=== PATIENT | female | born 1965 | race Caucasian/White ===

== ENCOUNTER 2019-04-09 16:52 | Emergency (ER) | payer OTHER ==
[2019-04-09 17:04] VITALS: BP 156/84
[2019-04-09] MEDS: Sodium Chloride 0.9% 10 ML Syringe FLUSH PRN ×2 (18:20→19:32)
[2019-04-09] MEDS ORDERED: Iohexol 647 MG/ML 100 ML Bottle IVPUSH ONE (18:58)
[2019-04-09] MEDS ORDERED: Diatrizoate Meglumine/Diatrizoate Sodium 37% 120 ML Bottle PO ONE (19:00)
[2019-04-09] MEDS ORDERED: Sodium Chloride 0.9% 10 ML Syringe FLUSH SCH (19:00)
--- NOTE | 2019-04-09 20:02 | EDM.PDOC ---
ED HPI GENERAL MEDICAL PROBLEM - General Chief Complaint: Abdominal Pain Stated Complaint: LOWER ABD PAIN Time Seen by Provider: 04/09/19 17:50 Source of Information: Reports: Patient History Limitations: Reports: No Limitations - History of Present Illness INITIAL COMMENTS - FREE TEXT/NARRATIVE: 54-year-old female sent over from the walk-in clinic for evaluation and treatment of abdominal pain, r/o appendicitis. Patient had labs done at the walk -in clinic. White blood cell count was within normal limits at 6. CRP was elevated at 25 within normal range being less than 5. Patient reports symptoms started on Sunday. She reports some lower abdominal pain and cramping. She states it has improved since Sunday. She reports associated symptoms of decreased appetite. Denies any fevers, chills, nausea, vomiting, diarrhea, constipation or any blood in her stool. She denies any urinary symptoms of a no dysuria or hematuria. States she is to pass gas. She reports that the pain is significantly improved since around lunchtime. States that the pain is made worse with movement such as bending over or sitting down. Previous abdominal surgeries include several C-sections. She did have colonoscopy about 5 years ago was told that she had diverticulitis at that time. - Related Data Allergies Allergy/AdvReac Type Severity Reaction Status Date / Time No Known Allergies Allergy Verified 04/09/19 17:03 Home Meds: Home Meds Levothyroxine 125 mcg PO DAILY 11/04/15 [History] Acetaminophen/oxyCODONE [Percocet 325-5 MG] 1 tab PO Q4HR PRN #15 tab 04/09/19 [ Rx] Levofloxacin [Levaquin] 750 mg PO DAILY #9 tablet 04/09/19 [Rx] metroNIDAZOLE [Flagyl] 500 mg PO Q8H #29 tab 04/09/19 [Rx] Past Medical History - Past Health History Medical/Surgical History: Denies Medical/Surgical History Endocrine/Metabolic History: Reports: Hypothyroidism Social & Family History - Tobacco Use Smoking Status *Q: Never Smoker Second Hand Smoke Exposure: No - Caffeine Use Caffeine Use: Reports: Coffee - Recreational Drug Use Recreational Drug Use: No ED ROS GENERAL - Review of Systems Review Of Systems: See Below Constitutional: Denies: Fever, Chills GI/Abdominal: Reports: Abdominal Pain (Lower abdominal). Denies: Constipation, Diarrhea, Hematochezia, Melena, Nausea, Vomiting : Reports: No Symptoms. Denies: Dysuria, Hematuria ED EXAM, GI/ABD - Physical Exam Exam: See Below Exam Limited By: No Limitations General Appearance: Alert, WD/WN, No Apparent Distress Throat/Mouth: Normal Inspection, Normal Voice, No Airway Compromise Respiratory/Chest: No Respiratory Distress, Lungs Clear, Normal Breath Sounds Cardiovascular: Normal Peripheral Pulses, Regular Rate, Rhythm, No Murmur GI/Abdominal Exam: Normal Bowel Sounds, Soft, No Distention, Tender (Minor tenderness to the lower abdomen. No pain at McBurney's point.), Other (No pain with this was an obturator sign. No pain with heel percussion). No: Guarding, Rigid, Rebound Neurological: Alert, Oriented, Normal Cognition Psychiatric: Normal Affect, Normal Mood Skin Exam: Warm, Dry, Normal Color Course - Vital Signs Last Recorded V/S: Last Vital Signs Temp 98.5 F 04/09/19 17:01 Pulse 63 04/09/19 17:01 Resp 16 04/09/19 17:01 BP 156/84 H 04/09/19 17:01 Pulse Ox 100 04/09/19 17:01 - Orders/Labs/Meds Orders: Active Orders 24 hr Category Date Time Status Peripheral IV Care [RC] . DIRECTED Care 04/09/19 18:04 Active Peripheral IV Insertion Adult [OM.PC] Routine Oth 04/09/19 18:04 Ordered Meds: Medications Discontinued Medications Generic Name Dose Route Start Last Admin Trade Name Freq PRN Reason Stop Dose Admin Diatrizoate Meglum/Diatrizoate Sod 120 ml 04/09/19 19:00 Gastrografin 37% PO 04/09/19 19:01 ONETIME ONE Iohexol 100 ml 04/09/19 18:58 04/09/19 19:29 Omnipaque-300 IVPUSH 04/09/19 18:59 100 ml ONETIME ONE Administration Levofloxacin 750 mg 04/09/19 20:12 04/09/19 20:20 Levaquin PO 04/09/19 20:13 750 mg NOW STA Administration Metronidazole 500 mg 04/09/19 20:12 04/09/19 20:20 Flagyl PO 04/09/19 20:13 500 mg ONETIME ONE Administration Sodium Chloride 10 ml 04/09/19 18:04 04/09/19 19:32 Saline Flush FLUSH 10 ml ASDIRECTED PRN Administration Keep Vein Open Sodium Chloride 10 ml 04/09/19 19:00 Saline Flush FLUSH ASDIRECTED DEBORAH - Radiology Interpretation Free Text/Narrative:: CT abdomen and pelvis Technique: Multiple axial sections were obtained from above the dome of the diaphragm inferiorly through the pubic symphysis. Intravenous and oral contrast was utilized. Delayed images were also obtained through the bladder. Comparison: No prior abdominal or pelvic CT exam. Findings: Small portion of the visualized lung bases are clear. Liver contains no focal abnormality. Spleen measures at the upper limits of normal at 13.2 cm which is nonspecific. Adrenal glands show no nodule. Pancreas is within normal limits. Aorta shows no aneurysm with mild atherosclerotic calcification which continues into the iliac vessels. Appendix is seen which is normal. Kidneys show symmetric contrast enhancement without hydronephrosis or mass. No pelvic mass or adenopathy is seen. Diverticuli are seen within the descending and sigmoid colon. Inflammatory change is seen around a sigmoid diverticulum with adjacent bowel wall thickening. These findings are compatible with diverticulitis. No diverticular abscess is seen at this time. Delayed images shows contrast within the bladder and distal ureters. Bone window settings which shows no acute osseous abnormality. Impression: 1. Findings compatible with diverticulitis within the sigmoid colon. No diverticular abscess is seen at this time. 2. Spleen size at the upper limits of normal which is nonspecific regarding etiology. 3. No additional abnormality is appreciated. - Re-Assessments/Exams Free Text/Narrative Re-Assessment/Exam: 04/09/19 20:11 Labs were obtained in the clinic therefore decided against repeating labs. I did feel that she would benefit from a CT to rule out diverticulitis. She has had diverticulitis in the past. I reviewed the CT results with the patient. This is an uncomplicated case of Diverticulitis and therefore can be treated as an outpatient. I'll start her on Levaquin and Flagyl. Recommend close follow-up in the clinic. She is to return to the ER for symptoms change or worsen. Discharge instructions as documented. Departure - Departure Time of Disposition: 20:14 Disposition: Home, Self-Care 01 Condition: Fair Clinical Impression: Diverticulitis - Discharge Information *PRESCRIPTION DRUG MONITORING PROGRAM REVIEWED*: No *COPY OF PRESCRIPTION DRUG MONITORING REPORT IN PATIENT DWAIN: No Prescriptions: Acetaminophen/oxyCODONE [Percocet 325-5 MG] 1 tab PO Q4HR PRN #15 tab PRN Reason: Pain Levofloxacin [Levaquin] 750 mg PO DAILY #9 tablet metroNIDAZOLE [Flagyl] 500 mg PO Q8H #29 tab Instructions: Diverticulitis, [id number] Referrals: Bella Saldivar MD [Physician] - Forms: ED Department Discharge Additional Instructions: Take the antibiotics as prescribed. Take the Levaquin 1 tab daily. your first dose was given in the ER. Start your prescription tomorrow. Take the Flagyl 1 tab every 8 hours. your first dose was given in the ER. You may take [id number] ibuprofen as needed for pain relief. Recommend clear fluids and a bland diet as tolerated. Follow-up with family medicine Sunday or Sunday for recheck of your symptoms. At the [facility] [place] recommend Dr. Saldivar or Dee Gonzales, call [phone] to schedule with one of these providers. Recommend starting a probiotic, these are available OTC. Please return to the ER if your symptoms change or worsen. - My Orders Last 24 Hours: My Active Orders 04/09/19 18:04 Peripheral IV Care [RC] . DIRECTED Peripheral IV Insertion Adult [OM.PC] Routine - Assessment/Plan Last 24 Hours: My Active Orders 04/09/19 18:04 Peripheral IV Care [RC] . DIRECTED Peripheral IV Insertion Adult [OM.PC] Routine
[2019-04-09] MEDS ORDERED: Levofloxacin 750 MG Tab PO STA (20:12)
[2019-04-09] MEDS ORDERED: metroNIDAZOLE 500 MG Tab PO ONE (20:12)
== END 2019-04-09 20:34 | disposition home or self-care (01) ==
LOC: JD.ED 16:52
DX: K57.32 Diverticulitis of large intestine without perforation or abscess without bleeding (principal); E03.9 Hypothyroidism, unspecified; Z79.899 Other long term (current) drug therapy
CPT/HCPCS: 74177; 99284; A9270; Q9963; Q9967

== ENCOUNTER 2020-03-25 12:22 | Emergency (ER) | payer OTHER ==
[2020-03-25] MEDS ORDERED: Aspirin 81 MG Tab.Chew PO ONE (12:38)
[2020-03-25] MEDS ORDERED: Sodium Chloride 0.9% 10 ML Syringe FLUSH PRN (12:38)
[2020-03-25 12:41] VITALS: BP 210/86; PULSE 61
--- NOTE | 2020-03-25 12:48 | EDM.PDOC ---
ED HPI GENERAL MEDICAL PROBLEM - General Chief Complaint: Chest Pain Stated Complaint: CHEST PAIN HIGH BP Time Seen by Provider: 03/25/20 12:26 Source of Information: Reports: Patient History Limitations: Reports: No Limitations - History of Present Illness INITIAL COMMENTS - FREE TEXT/NARRATIVE: The patient presents with chest pain. This started when she was at work. The pain is in the lower mid chest and upper abdomen. She checked her blood pressure and it was a little high at 153 systolic and repeat BP was 170s systolic. 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 The pain went away and she came to get checked. She has no shortness of breath with it. She has no fever, chills, cough, congestion, runny nose, nausea or vomiting. She says she has been having more reflux lately. She has a history of hypothyroidism. She does not have a history of heart disease, diabetes, hypertension or hypercholesterolemia. She does not smoke. Onset: Gradual Duration: Hour(s): Location: Reports: Chest Quality: Reports: Sharp Severity: Moderate Improves with: Reports: None Worsens with: Reports: None Associated Symptoms: Reports: Chest Pain. Denies: Confusion, Cough, Fever/ Chills, Headaches, Nausea/Vomiting, Shortness of Breath Treatments RECORDS ADMINISTRATOR: Reports: Other (see below) Other Treatments RECORDS ADMINISTRATOR: none - Related Data Allergies Allergy/AdvReac Type Severity Reaction Status Date / Time No Known Allergies Allergy Verified 04/09/19 17:03 Home Meds: Home Meds Levothyroxine 125 mcg PO DAILY 11/04/15 [History] Past Medical History - Past Health History Medical/Surgical History: Denies Medical/Surgical History Endocrine/Metabolic History: Reports: Hypothyroidism Social & Family History - Tobacco Use Smoking Status *Q: Unknown Ever Smoked - Caffeine Use Caffeine Use: Reports: Coffee - Recreational Drug Use Recreational Drug Use: No ED ROS GENERAL - Review of Systems Review Of Systems: See Below Constitutional: Reports: No Symptoms HEENT: Reports: No Symptoms Respiratory: Reports: No Symptoms Cardiovascular: Reports: Chest Pain Endocrine: Reports: No Symptoms GI/Abdominal: Reports: No Symptoms : Reports: No Symptoms Musculoskeletal: Reports: No Symptoms ED EXAM, GENERAL - Physical Exam Exam: See Below Exam Limited By: No Limitations General Appearance: Alert, No Apparent Distress Ears: Normal External Exam Nose: Normal Inspection Head: Atraumatic, Normocephalic Neck: Normal Inspection Respiratory/Chest: No Respiratory Distress, Lungs Clear, Normal Breath Sounds Cardiovascular: Regular Rate, Rhythm, No Edema, No Murmur GI/Abdominal: Soft, Non-Tender, No Organomegaly, No Mass Back Exam: Normal Inspection Extremities: Normal Inspection EKG INTERPRETATION EKG Date: 03/25/20 Time: 12:30 Rhythm: NSR Rate (Beats/Min): 62 [place]: Normal P-Wave: Present QRS: Normal ST-T: Normal QT: Normal Course - Vital Signs Last Recorded V/S: Last Vital Signs Temp 97.7 F 03/25/20 12:39 Pulse 61 03/25/20 12:39 Resp 20 03/25/20 12:39 BP 210/86 H 03/25/20 12:39 Pulse Ox 98 03/25/20 12:39 - Orders/Labs/Meds Orders: Active Orders 24 hr Category Date Time Status Cardiac Monitoring [RC] . DIRECTED Care 03/25/20 12:38 Active EKG Documentation Completion [RC] STAT Care 03/25/20 12:38 Active Peripheral IV Care [RC] . DIRECTED Care 03/25/20 12:38 Active TROPONIN I [CHEM] Stat Lab 03/25/20 14:21 Ordered Sodium Chloride 0.9% [Saline Flush] Med 03/25/20 12:38 Active 10 ml FLUSH ASDIRECTED PRN Peripheral IV Insertion Adult [OM.PC] Stat Oth 03/25/20 12:38 Ordered Medication Orders Sodium Chloride (Saline Flush) 10 ml FLUSH ASDIRECTED PRN PRN Reason: Keep Vein Open Last Admin: 03/25/20 13:03 Dose: 10 ml Labs: Laboratory Tests 03/25/20 03/25/20 03/25/20 Range/Units 13:08 13:08 13:08 WBC 4.80 (3.98-10.04) K/mm3 RBC 4.72 (3.98-5.22) M/mm3 Hgb 13.6 (11.2-15.7) gm/dl Hct 41.3 (34.1-44.9) % MCV 87.5 (79.4-94.8) fl MCH 28.8 (25.6-32.2) pg MCHC 32.9 (32.2-35.5) g/dl RDW Std Deviation 42.3 (36.4-46.3) fL Plt Count 153 L D (182-369) K/mm3 MPV 9.8 (9.4-12.3) fl Neut % (Auto) 60.2 (34.0-71.1) % Lymph % (Auto) 32.1 (19.3-51.7) % [place] % (Auto) 6.7 (4.7-12.5) % Eos % (Auto) 0.8 (0.7-5.8) Baso % (Auto) 0.2 (0.1-1.2) % Neut # (Auto) 2.89 (1.56-6.13) K/mm3 Lymph # (Auto) 1.54 (1.18-3.74) K/mm3 [place] # (Auto) 0.32 (0.24-0.36) K/mm3 Eos # (Auto) 0.04 (0.04-0.36) K/mm3 Baso # (Auto) 0.01 (0.01-0.08) K/mm3 D-Dimer, Quantitative < 0.19 L (0.19-0.50) mg/L Sodium 141 (136-145) mEq/L Potassium 3.9 (3.5-5.1) mEq/L Chloride 106 (98-107) mEq/L Carbon Dioxide 26 (21-32) mEq/L Anion Gap 12.9 (5-15) BUN 18 (7-18) mg/dL Creatinine 0.7 (0.55-1.02) mg/dL Est Cr Clr Drug Dosing 77.49 mL/min Estimated GFR (MDRD) > 60 (>60) mL/min BUN/Creatinine Ratio 25.7 H (14-18) Glucose 91 (74-106) mg/dL Calcium 8.9 (8.5-10.1) mg/dL Total Bilirubin 0.3 (0.2-1.0) mg/dL AST 24 (15-37) U/L ALT 28 (14-59) U/L Alkaline Phosphatase 58 (46-116) U/L Troponin I < 0.017 (0.00-0.056) ng/mL Total Protein 6.7 (6.4-8.2) g/dl Albumin 3.8 (3.4-5.0) g/dl Globulin 2.9 gm/dL Albumin/Globulin Ratio 1.3 (1-2) Meds: Medications Generic Name Dose Route Start Last Admin Trade Name Freq PRN Reason Stop Dose Admin Sodium Chloride 10 ml 03/25/20 12:38 03/25/20 13:03 Saline Flush FLUSH 10 ml ASDIRECTED PRN Administration Keep Vein Open Discontinued Medications Generic Name Dose Route Start Last Admin Trade Name Freq PRN Reason Stop Dose Admin Aspirin 324 mg 03/25/20 12:38 03/25/20 13:03 Aspirin PO 03/25/20 12:39 324 mg ONETIME ONE Administration - Re-Assessments/Exams Free Text/Narrative Re-Assessment/Exam: 03/25/20 12:49 I ordered an IV saline lock, EKG, aspirin, CXR and labs. Her EKG shows a NSR with no acute changes. 03/25/20 14:02 Her CXR looks good. Her CBC and CMP look good. Her troponin and D-dimer were negative. Departure - Departure Time of Disposition: 14:40 Disposition: Home, Self-Care 01 Condition: Good Clinical Impression: Atypical chest pain Referrals: Guy Rockwell MD [Primary Care Provider] - 1 Week Forms: ED Department Discharge Additional Instructions: Take your medication as prescribed. Take pepcid daily for 1 week. Keep track of your blood pressure over the next week and present those numbers to Dr Rockwell next week. Please return if you are worse. Sepsis Event Note - Evaluation Sepsis Screening Result: No Definite Risk - Focused Exam Vital Signs: Vital Signs Temp Pulse Resp BP Pulse Ox 03/25/20 12:39 97.7 F 61 20 210/86 H 98 Date Exam was Performed: 03/25/20 Time Exam was Performed: 14:38 - My Orders Last 24 Hours: My Active Orders 03/25/20 12:38 Cardiac Monitoring [RC] . DIRECTED EKG Documentation Completion [RC] STAT Peripheral IV Care [RC] . DIRECTED Sodium Chloride 0.9% [Saline Flush] 10 ml FLUSH ASDIRECTED PRN Peripheral IV Insertion Adult [OM.PC] Stat 03/25/20 14:21 TROPONIN I [CHEM] Stat - Assessment/Plan Last 24 Hours: My Active Orders 03/25/20 12:38 Cardiac Monitoring [RC] . DIRECTED EKG Documentation Completion [RC] STAT Peripheral IV Care [RC] . DIRECTED Sodium Chloride 0.9% [Saline Flush] 10 ml FLUSH ASDIRECTED PRN Peripheral IV Insertion Adult [OM.PC] Stat 03/25/20 14:21 TROPONIN I [CHEM] Stat
--- NOTE | 2020-03-25 13:43 | CR ---
Chest: 2 views of the chest were obtained. Comparison: No previous chest imaging. Heart size and mediastinum are normal. Lungs are clear with no acute parenchymal change. Bony structures appear within normal limits for the patient's age. Impression: 1. Nothing acute is seen on 2 view chest x-ray. Diagnostic code #1 This report was dictated in MDT
== END 2020-03-25 14:45 | disposition home or self-care (01) ==
LOC: JD.ED 12:22
DX: R07.89 Other chest pain (principal); E03.9 Hypothyroidism, unspecified; Z79.899 Other long term (current) drug therapy
CPT/HCPCS: 36415; 71046; 80053; 84484; 85025; 85379; 93005; 99285; A9270

== ENCOUNTER 2024-12-17 11:05 | Emergency (ER) | payer OTHER ==
[2024-12-17 11:19] VITALS: BP 186/80; PULSE 62
[2024-12-17 11:40] LABS: BASOPHILS PERCENT AUTO 0.3 % (0.0-1.0); EOSINOPHILS PERCENT AUTO 0.7 % (0.0-6.0); HEMATOCRIT 43.3 % (37.0-47.0); HEMOGLOBIN 14.4 gm/dl (12.0-16.0); IMMATURE GRAN ABSOLUTE AUTO 0.03 K/mm3 (0.00-0.05); IMMATURE GRAN PERCENT AUTO 0.5 % (0.0-0.4); LYMPHOCYTES ABSOLUTE AUTO 1.9 K/mm3 (1.0-4.8); LYMPHOCYTES PERCENT AUTO 31.3 % (24.0-44.0); MEAN CORPUSCULAR HEMOGLOBIN 29.1 pg (28.0-32.0); MEAN CORPUSCULAR HGB CONC 33.3 g/dl (32.0-36.0); MEAN CORPUSCULAR VOLUME 87.7 fl (83.0-99.0); MEAN PLATELET VOLUME 9.6 fl (9.4-12.3); MONOCYTES ABSOLUTE AUTO 0.5 K/mm3 (0.0-0.8); MONOCYTES PERCENT AUTO 7.3 % (0.0-8.0); NEUTROPHILS ABSOLUTE AUTO 3.7 K/mm3 (1.8-7.7); NEUTROPHILS PERCENT AUTO 59.9 % (41.0-71.0); PLATELET COUNT,PLT 159 K/mm3 (150-400); RED BLOOD CELL COUNT 4.94 M/mm3 (4.10-5.30); WHITE BLOOD CELL COUNT,WBC 6.14 K/mm3 (3.9-11.3)
[2024-12-17] MEDS: Sodium Chloride 0.9% 1,000 ML IV STA (11:46)
[2024-12-17] MEDS: Ondansetron 4 MG/2 ML SDV IVPUSH ONE (11:47)
[2024-12-17] MEDS: HYDROmorphone 0.5 MG/0.5 ML Syringe IVPUSH ONE (11:48)
[2024-12-17 12:07] LABS: A/G RATIO 1.3 (1-2); ALBUMIN 3.9 g/dl (3.4-5.0); ANION GAP 12.1 (5-15); BILIRUBIN TOTAL 0.5 mg/dL (0.2-1.0); BUN/CREATININE RATIO 27.1 (14-18); CALCIUM 8.7 mg/dL (8.5-10.1); CREATININE 0.7 mg/dL (0.55-1.02); EST CRCL DRUG DOSING (CG) 73.8 mL/min; POTASSIUM,K 4.1 mEq/L (3.5-5.1); PROTEIN TOTAL,TP 6.9 g/dl (6.4-8.2)
[2024-12-17 12:09] LABS: C-REACTIVE PROTEIN 0.1 mg/dL (<0.30)
[2024-12-17] MEDS: Hyoscyamine 0.125 MG Tab.SL SL ONE (13:55)
== END 2024-12-17 15:48 | disposition home or self-care (01) ==
LOC: JD.ED 11:05
DX: K80.50 Calculus of bile duct without cholangitis or cholecystitis without obstruction (principal); E03.9 Hypothyroidism, unspecified; Z79.899 Other long term (current) drug therapy
CPT/HCPCS: 36415; 76705; 80053; 83690; 84484; 85025; 86140; 93005; 96374; 96375; 99285; A9270; J2405; J7030; 93010; 99284

== ENCOUNTER 2024-12-25 08:55 | Day surgery (SDC) | payer OTHER ==
[~2024-12-25 08:55] MED LIST: Acetaminophen 325 MG Tab PO ONE; Famotidine 20 MG/2 ML SDV IVPUSH ONE; Sodium Chloride 0.9% 10 ML Syringe FLUSH PRN; Sodium Chloride 0.9% 10 ML Syringe FLUSH SCH
[2024-12-25] MEDS ORDERED: ceFAZolin 2 GM Vial ONE (09:00)
[2024-12-25] MEDS ORDERED: Ondansetron 4 MG/2 ML SDV ONE (09:27)
[2024-12-25] MEDS ORDERED: Ketamine 200 MG/20 ML MDV ONE (09:27)
[2024-12-25] MEDS ORDERED: Rocuronium 50 MG/5 ML Vial ONE (09:27)
[2024-12-25] MEDS ORDERED: Dexamethasone 4 MG/ML 5 ML MDV ONE (09:27)
[2024-12-25] MEDS ORDERED: Lidocaine 2% 5 ML SDV ONE (09:27)
[2024-12-25] MEDS ORDERED: Propofol 200 MG/20 ML SDV ONE (09:27)
[2024-12-25] MEDS ORDERED: Ketorolac 30 MG/ML SDV ONE (09:27)
[2024-12-25] MEDS ORDERED: fentaNYL 100 MCG/2 ML SDV ONE (09:27)
[2024-12-25] MEDS: Lactated Ringers 1,000 ML IV SCH (09:35)
[2024-12-25] MEDS: Famotidine 20 MG/2 ML SDV IVPUSH SCH (09:53)
[2024-12-25] MEDS: Acetaminophen 325 MG Tab PO SCH (09:54)
[2024-12-25] MEDS ORDERED: Glycopyrrolate 0.2 MG/ML 2 ML SDV ONE (09:58)
[2024-12-25] MEDS ORDERED: Sugammadex Sodium 200 MG/2 ML VIAL IV ONE (10:20)
[2024-12-25] MEDS: Bupivacaine 0.5% 30 ML SDV ONE (11:13)
[2024-12-25] MEDS: EPINEPHrine 1 MG/ML SDV ONE (11:13)
[2024-12-25] MEDS ORDERED: Ondansetron 4 MG/2 ML SDV IVPUSH PRN (11:29)
[2024-12-25] MEDS: HYDROmorphone 0.5 MG/0.5 ML Syringe IVPUSH PRN (12:04)
[2024-12-25] MEDS: fentaNYL 100 MCG/2 ML SDV IVPUSH PRN (12:22)
[2024-12-25] MEDS ORDERED: oxyCODONE 5 MG Tab PO PRN (13:12)
[2024-12-25 14:01] VITALS: BP 154/68; PULSE 70
== END 2024-12-25 13:45 | disposition home or self-care (01) ==
LOC: JD.SDS 08:55
PROVIDERS: ATTEND Surgery
DX: K80.10 Calculus of gallbladder with chronic cholecystitis without obstruction (principal); E03.9 Hypothyroidism, unspecified; F33.1 Major depressive disorder, recurrent, moderate; Z79.890 Hormone replacement therapy; Z79.899 Other long term (current) drug therapy
CPT/HCPCS: 47562; A9270; J0171; J0665; J0690; J1100; J1885; J2003; J2405; J2704; J3010; J3490; J7120; 00790